=== PATIENT | female | born 1965 | race Two or more races ===

== ENCOUNTER 2019-07-08 22:15 | Emergency (ER) | payer SELFPAY ==
[~2019-07-08] VITALS: Ht 170.2 cm; Wt 99.8 kg
[~2019-07-08 22:15] MED LIST: UNOBMED
[2019-07-08] MEDS ORDERED: LORazepam Inj 2mg/ml 1ml IM ONE (22:30)
--- NOTE | 2019-07-08 22:30 | Emergency Room Report ---
History of Present Illness General Chief Complaint: Generalized Weakness Source: Patient Present Illness HPI Before work, she was almost in an accident. This upset her. She was at work and started feeling overwhelmed. She started getting short of breath and then she started having tingling on her hand and feet and mouth. She felt weak at that time short of breath and felt that she could not stand. She had one episode like this before. She denies any chest pain at this time. The weakness is generalized and not involving one side or the other. She is having difficulty ambulating. She denies any extremity pain. She denies fever but felt chilled during the episode. Patient has a history of hypertension and states that she took her blood pressure medicine today. She is only taking hydrochlorothiazide. She initially reports that she had a stroke in the past. 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 No sore throat, chest pain, nausea, vomiting, diarrhea, dysuria, abdominal pain , joint pain, rashes, depression, visual changes, headache. Allergies: Coded Allergies: No Known Allergies (Unverified , 03/17/17) Patient History Past Medical History: see triage record Social History: Denies: smoking, alcohol use, drug use Social History Narrative Works in a [employer] Last Menstrual Period: n/a Reviewed Nursing Documentation: PMH: Agreed; PSxH: Agreed Nursing Documentation-PMH Past Medical History: No History, Except For Hx Cardiac Problems: No Hx Hypertension: Yes Hx Cancer: No Hx Gastrointestinal Problems: Yes Hx Neurological Problems: Yes Hx Cerebrovascular Accident: Yes - 3 CVAs Review of Systems All Other Systems: negative except mentioned in HPI Physical Exam Vital Signs Date Time Temp Pulse Resp B/P (MAP) Pulse Ox O2 Delivery O2 Flow Rate FiO2 07/08/19 22:22 97.9 71 18 217/136 (163) 100 Sp02 EP Interpretation: reviewed, normal General Appearance: no apparent distress, GCS 15, non-toxic, mild distress, obese Head: normocephalic, atraumatic Eyes: bilateral eye normal inspection, bilateral eye PERRL, bilateral eye EOMI ENT: moist mucus membranes Neck: full range of motion, supple Respiratory: chest non-tender, lungs clear, normal breath sounds Cardiovascular #1: regular rate, rhythm, no edema Cardiovascular #2: 2+ radial (R) Gastrointestinal: normal inspection, normal bowel sounds, non tender, no mass, non-distended, overweight Genitourinary: no CVA tenderness Musculoskeletal: back normal, normal range of motion, no calf tenderness Neurologic: alert, oriented x3, car usher III-XII nml as tested, motor strength/tone normal, DTRs symmetric, sensory intact, cerebellar normal, speech normal, other - Family assisting ambulation Psychiatric: anxious Skin: no rash Medical Decision Making Diagnostic Impression: Primary Impression: Acute hyperventilation Additional Impression: Labile hypertension ER Course Patient presents with dyspnea abnormality tingling and hypertension. Differential includes acute myocardial infarction, hyperventilation syndrome, electrolyte imbalance, hypertensive urgency, malignant hypertension amongst others. There is no evidence of stroke at this time. The patient will be evaluated with EKG, chest x-ray and labs. The patient will be treated with Ativan. She is placed on a radiation monitor. Her blood pressure will be monitored. EKG without injury. Chest x-ray clear. Labs with normal CBC. Carbon dioxide minimally decreased without anion gap. Rest of labs including troponin are negative. Patient improved with observation. Ambulatory on her own. Blood pressure is improved without treatment. Discussed findings with patient and family and also most likely etiology. Advised to follow-up with her primary physician. Patient improved with treatment and stable for outpatient observation and treatment. Laboratory Tests Test 07/08/19 22:35 White Blood Count 9.7 K/UL (4.8-10.8) Red Blood Count 4.49 M/UL (4.20-5.40) Hemoglobin 14.0 G/DL (12.0-16.0) Hematocrit 39.5 % (37.0-47.0) Mean Corpuscular Volume 88 FL (80-99) Mean Corpuscular Hemoglobin 31.3 PG (27.0-31.0) H Mean Corpuscular Hemoglobin Concent 35.5 G/DL (32.0-36.0) Red Cell Distribution Width 11.3 % (11.6-14.8) L Platelet Count 247 K/UL (150-450) Mean Platelet Volume 7.6 FL (6.5-10.1) Neutrophils (%) (Auto) 51.6 % (45.0-75.0) Lymphocytes (%) (Auto) 37.6 % (20.0-45.0) Monocytes (%) (Auto) 7.2 % (1.0-10.0) Eosinophils (%) (Auto) 2.4 % (0.0-3.0) Basophils (%) (Auto) 1.1 % (0.0-2.0) Prothrombin Time 9.4 SEC (9.30-11.50) Prothrombin Time INR 0.9 (0.9-1.1) PTT 25 SEC (23-33) Sodium Level 147 MMOL/L (136-145) H Potassium Level 3.6 MMOL/L (3.5-5.1) Chloride Level 110 MMOL/L (98-107) H Carbon Dioxide Level 25 MMOL/L (21-32) Anion Gap 12 mmol/L (5-15) Blood Urea Nitrogen 14 mg/dL (7-18) Creatinine 0.9 MG/DL (0.55-1.30) Estimate Glomerular Filtration Rate > 60 mL/min (>60) Glucose Level 130 MG/DL (74-106) H Calcium Level 9.7 MG/DL (8.5-10.1) Total Bilirubin 0.3 MG/DL (0.2-1.0) Aspartate Amino Transferase (AST) 29 U/L (15-37) Alanine Aminotransferase (ALT) 53 U/L (12-78) Alkaline Phosphatase 143 U/L (46-116) H Total Creatine Kinase 163 U/L (26-308) Troponin I 0.000 ng/mL (0.000-0.056) Pro-B-Type Natriuretic Peptide 163 pg/mL (0-125) H Total Protein 7.8 G/DL (6.4-8.2) Albumin 3.9 G/DL (3.4-5.0) Globulin 3.9 g/dL Albumin/Globulin Ratio 1.0 (1.0-2.7) EKG Diagnostic Results Rate: normal Rhythm: NSR ST Segments: no acute changes Rhythm Strip Diag. Results EP Interpretation: yes Rhythm: NSR, no PVC's, no ectopy Chest X-Ray Diagnostic Results Chest X-Ray Diagnostic Results : Chest X-Ray Ordered: Yes # of Views/Limited/Complete: 1 View EP Interpretation: Yes Interpretation: no consolidation, no effusion, no pneumothorax Impression: No acute disease Electronically Signed by: Electronically signed by Carmelo Rivas MD Last Vital Signs Date Time Temp Pulse Resp B/P (MAP) Pulse Ox O2 Delivery O2 Flow Rate FiO2 07/09/19 02:08 98.6 70 18 144/84 99 Room Air Status: improved Disposition: HOME, SELF-CARE Condition: Improved Scripts Hydroxyzine Pamoate (VISTARIL) 25 Mg Capsule 25 MG PO Q8HR PRN for For Anxiety, #10 CAP Prov: Carmelo Rivas MD 07/09/19 Referrals: NOT CHOSEN IPA/,REFERRING (PCP) Carmelo Rivas MD Jul 08, 2019 22:30
[2019-07-08 22:42] VITALS: BP 217/136
--- NOTE | 2019-07-08 22:46 | NUR ---
ED Nurse Note: Patient was wheeled into ER due to anxiety attack, weakness. Stated that can not feel both arms, and lower jaw. Patient presented crying, resstless, AAO x4, BP 217/117, ER MD randhawa, other VSS at this time.
[2019-07-08 23:06] LABS: BASOPHILS % (AUTO) 1.1 % (0.0-2.0); EOSINOPHILS % (AUTO) 2.4 % (0.0-3.0); HEMATOCRIT 39.5 % (37.0-47.0); LYMPHOCYTES % (AUTO) 37.6 % (20.0-45.0); MEAN CORPUSCULAR VOLUME 88 FL (80-99); MONOCYTES % (AUTO) 7.2 % (1.0-10.0); NEUTROPHILS % (AUTO) 51.6 % (45.0-75.0); PLATELET COUNT 247 K/UL (150-450); RED BLOOD COUNT 4.49 M/UL (4.20-5.40); RED CELL DISTRIBUTION WIDTH 11.3 % (11.6-14.8); WHITE BLOOD COUNT 9.7 K/UL (4.8-10.8)
[2019-07-08 23:19] LABS: INR 0.9 (0.9-1.1)
--- NOTE | 2019-07-08 23:24 | Diagnostic Imaging Report ---
EXAM: XR Chest, 1 View CLINICAL HISTORY: DYSPNEA TECHNIQUE: Frontal view of the chest. COMPARISON: 03/06/17 IMPRESSION: Unchanged heart size. No consolidation or pleural effusion.
[2019-07-08 23:25] LABS: ANION GAP 12 mmol/L (5-15); BLOOD UREA NITROGEN 14 mg/dL (7-18); CALCIUM 9.7 MG/DL (8.5-10.1); CARBON DIOXIDE 25 MMOL/L (21-32); CHLORIDE 110 MMOL/L (98-107); CREATININE 0.9 MG/DL (0.55-1.30); POTASSIUM 3.6 MMOL/L (3.5-5.1); SODIUM 147 MMOL/L (136-145)
[2019-07-08 23:38] LABS: ALANINE AMINOTRANSFERASE 53 U/L (12-78); ALBUMIN 3.9 G/DL (3.4-5.0); ALKALINE PHOSPHATASE 143 U/L (46-116); ASPARTATE AMINO TRANSFERASE 29 U/L (15-37); BILIRUBIN,TOTAL 0.3 MG/DL (0.2-1.0); CREATINE KINASE 163 U/L (26-308)
[2019-07-09] MEDS ORDERED: Nitroglycerin 2% oint pkt TOPIC ONE
[2019-07-09] MEDS ORDERED: Metoprolol 5mg/5ml Inj IVP SCH
[2019-07-09] MEDS ORDERED: VISTARIL25 M1 PO (02:05)
--- NOTE | 2019-07-09 02:10 | NUR ---
ER DISCHARGE NOTE: Patient is cleared to be discharged per ERMD, pt is aox4, on room air, with stable vital signs. pt was given dc and prescription instructions, pt was able to verbalize understanding, pt id band and iv site removed without complications. pt is able to ambulate with steady gait. pt took all belongings.
== END 2019-07-09 02:16 | disposition home or self-care (01) ==
LOC: EDUNIT# 22:28 → EMR 22:28 → CANBEDREQ 07-09 00:29 → EMR 07-09 02:16
DX: R06.4 Hyperventilation (principal); I10 Essential (primary) hypertension; G51.0 Bell's palsy; Z86.73 Personal history of transient ischemic attack (TIA), and cerebral infarction without residual deficits
CPT/HCPCS: 36415; 71045; 80053; 82550; 83880; 84484; 85025; 85610; 85730; 96372; 96374; 99284

== ENCOUNTER 2020-04-04 21:34 | Emergency (ER) | payer SELFPAY ==
[~2020-04-04] VITALS: Ht 170.2 cm; Wt 108.9 kg
[~2020-04-04 21:34] MED LIST changes: +ACYCLOVIR400 MG ORAL; +ASPIRIN81 M3 PO; +AUGMENTIN 875-1 EAC1 ORAL; +HYDROCHLOROTHIA25 MG ORAL; +LIPITOR40 MG ORAL; +METFORMIN HCL500 M1 ORAL; +NORVASC5 MG ORAL; +PREDNISONE10 M2 PO; +VISTARIL25 M1 PO
[2020-04-04 21:35] VITALS: BP 165/113
--- NOTE | 2020-04-04 21:59 | Emergency Room Report ---
History of Present Illness General Chief Complaint: Dizziness Source: EMS (Baljeet Becker M.D.) Present Illness HPI 55-year-old female presented for palpitations and dizziness. She has a history of hypertension. She states she has been compliant with her medications. She denied any nausea or vomiting. She denies any chest pain or shortness of breath. Symptoms started earlier today. She feels her blood pressures been running high. She states she has been compliant with her medications. (Baljeet Bekcer M.D.) Allergies: Coded Allergies: No Known Allergies (Unverified , 03/17/17) COVID-19 Screening Contact w/high risk pt: No Recent Travel to affected area: No Experienced COVID-19 symptoms?: No COVID-19 Testing performed FURNITURE REPAIR TECHNICIAN: No (Baljeet Becker M.D.) Patient History Last Menstrual Period: unk Reviewed Nursing Documentation: PMH: Agreed; PSxH: Agreed (Baljeet Becker M.D.) Nursing Documentation-PMH Hx Cardiac Problems: No Hx Hypertension: Yes Hx Cancer: No Hx Gastrointestinal Problems: Yes Hx Neurological Problems: Yes Hx Cerebrovascular Accident: Yes (Baljeet Becker M.D.) Review of Systems All Other Systems: negative except mentioned in HPI (Baljeet Becker M.D.) Physical Exam Vital Signs Date Time Temp Pulse Resp B/P (MAP) Pulse Ox O2 Delivery O2 Flow Rate FiO2 04/04/20 21:31 81 18 185/127 (146) 99 Room Air 04/04/20 21:35 98.3 Sp02 EP Interpretation: reviewed, normal General Appearance: well appearing, no apparent distress Head: normocephalic, atraumatic Eyes: bilateral eye PERRL, bilateral eye EOMI ENT: hearing grossly normal, moist mucus membranes Neck: full range of motion, supple Respiratory: lungs clear, normal breath sounds, no rhonchi, no respiratory distress, no retraction, no wheezing Cardiovascular #1: normal peripheral pulses, regular rate, rhythm, no murmur Gastrointestinal: non tender, soft, non-distended, no guarding Neurologic: alert, motor strength/tone normal, energy consultant III-XII nml as tested, oriented x3, cerebellar normal, no focal defects Skin: normal color, warm/dry (Baljeet Becker M.D.) Medical Decision Making Diagnostic Impression: Primary Impression: Uncontrolled hypertension ER Course MDM: Dizziness and palpitations. Patient has a history of hypertension. She states she has been compliant with her medications. Patient's blood pressure on arrival was elevated but she denied chest pain. EKG had no ischemic changes. Differential included but not limited to uncontrolled hypertension, anxiety, less likely ACS or stroke. Clinical course-IV inserted cardiac monitoring pulse oximetry. Basic laboratory studies were sent. Patient will be observed in the ER. Blood pressure did improve without medication. Plan-patient signed out to oncoming physician to follow-up on laboratory studies reassess patient and final disposition. (Baljeet Becker M.D.) ER Course Assumed care of the patient from previous provider. Briefly, this is a 55-year-old female with history of hypertension presenting for dizziness/lightheadedness that began earlier today. She feels her pressures have been running high. She came with originally elevated heart blood pressures with systolic pressures in the 180s however without medications they have improved to the 140s-160s. She is currently denying dizziness, headache, palpitations or other symptoms. Labs have returned within normal limits including cardiac enzymes. Chest x-ray unremarkable. Patient will be discharged home. Prior to discharge she will be given her nighttime dose of hydrochlorothiazide, 25 mg. She will follow-up with her PMD regarding her elevated blood pressures and possible need to change her medication regimen. Discussed reasons to return to the emergency department. She understands and agrees with this treatment plan. Laboratory Tests Test 04/04/20 21:30 White Blood Count 9.7 K/UL (4.8-10.8) Red Blood Count 4.65 M/UL (4.20-5.40) Hemoglobin 14.3 G/DL (12.0-16.0) Hematocrit 44.4 % (37.0-47.0) Mean Corpuscular Volume 95 FL (80-99) Mean Corpuscular Hemoglobin 30.7 PG (27.0-31.0) Mean Corpuscular Hemoglobin Concent 32.2 G/DL (32.0-36.0) Red Cell Distribution Width 12.7 % (11.6-14.8) Platelet Count 238 K/UL (150-450) Mean Platelet Volume 9.9 FL (6.5-10.1) Neutrophils (%) (Auto) 54.3 % (45.0-75.0) Lymphocytes (%) (Auto) 37.5 % (20.0-45.0) Monocytes (%) (Auto) 4.8 % (1.0-10.0) Eosinophils (%) (Auto) 2.1 % (0.0-3.0) Basophils (%) (Auto) 1.4 % (0.0-2.0) Sodium Level 143 MMOL/L (136-145) Potassium Level 3.4 MMOL/L (3.5-5.1) L Chloride Level 105 MMOL/L (98-107) Carbon Dioxide Level 26 MMOL/L (21-32) Anion Gap 12 mmol/L (5-15) Blood Urea Nitrogen 13 mg/dL (7-18) Creatinine 0.7 MG/DL (0.55-1.30) Estimated Glomerular Filtration Rate > 60 mL/min (>60) Glucose Level 114 MG/DL (74-106) H Calcium Level 9.3 MG/DL (8.5-10.1) Total Bilirubin 0.4 MG/DL (0.2-1.0) Aspartate Amino Transferase (AST) 32 U/L (15-37) Alanine Aminotransferase (ALT) 64 U/L (12-78) Alkaline Phosphatase 134 U/L (46-116) H Troponin I 0.000 ng/mL (0.000-0.056) Pro-B-Type Natriuretic Peptide 260 pg/mL (0-125) H Total Protein 7.7 G/DL (6.4-8.2) Albumin 3.9 G/DL (3.4-5.0) Globulin 3.8 g/dL Albumin/Globulin Ratio 1.0 (1.0-2.7) (Sherman Hampton MD) EKG Diagnostic Results Rate: normal Rhythm: NSR, other - PACs ST Segments: no acute changes (Baljeet Becker M.D.) Rhythm Strip Diag. Results EP Interpretation: yes Rate: 68 Rhythm: NSR, no PVC's (Baljeet Becker M.D.) Chest X-Ray Diagnostic Results Chest X-Ray Diagnostic Results : Chest X-Ray Ordered: Yes # of Views/Limited/Complete: 1 View Indication: Chest Pain Interpretation: no consolidation, no effusion, no pneumothorax Impression: No acute disease Electronically Signed by: Electronically signed by Dr. Sherman Hampton (Sherman Hampton MD) Last Vital Signs Date Time Temp Pulse Resp B/P (MAP) Pulse Ox O2 Delivery O2 Flow Rate FiO2 04/04/20 21:35 98.3 78 18 165/113 99 Room Air (Baljeet Becker M.D.) Disposition: HOME, SELF-CARE Condition: Stable Baljeet Becker M.D. Apr 04, 2020 21:59 Sherman Hampton MD Apr 04, 2020 22:56
[2020-04-04 22:08] LABS: BASOPHILS % (AUTO) 1.4 % (0.0-2.0); EOSINOPHILS % (AUTO) 2.1 % (0.0-3.0); HEMATOCRIT 44.4 % (37.0-47.0); HEMOGLOBIN 14.3 G/DL (12.0-16.0); LYMPHOCYTES % (AUTO) 37.5 % (20.0-45.0); MEAN CORPUSCULAR VOLUME 95 FL (80-99); MONOCYTES % (AUTO) 4.8 % (1.0-10.0); NEUTROPHILS % (AUTO) 54.3 % (45.0-75.0); PLATELET COUNT 238 K/UL (150-450); RED BLOOD COUNT 4.65 M/UL (4.20-5.40); RED CELL DISTRIBUTION WIDTH 12.7 % (11.6-14.8); WHITE BLOOD COUNT 9.7 K/UL (4.8-10.8)
[2020-04-04 22:22] LABS: ANION GAP 12 mmol/L (5-15); BLOOD UREA NITROGEN 13 mg/dL (7-18); CALCIUM 9.3 MG/DL (8.5-10.1); CARBON DIOXIDE 26 MMOL/L (21-32); CHLORIDE 105 MMOL/L (98-107); CREATININE 0.7 MG/DL (0.55-1.30); POTASSIUM 3.4 MMOL/L (3.5-5.1); SODIUM 143 MMOL/L (136-145)
[2020-04-04 22:30] VITALS: BP 153/93
[2020-04-04 22:33] LABS: ALANINE AMINOTRANSFERASE 64 U/L (12-78); ALBUMIN 3.9 G/DL (3.4-5.0); ALKALINE PHOSPHATASE 134 U/L (46-116); ASPARTATE AMINO TRANSFERASE 32 U/L (15-37); BILIRUBIN,TOTAL 0.4 MG/DL (0.2-1.0)
[2020-04-04] MEDS ORDERED: hydroCHLOROthiazide 25mg cap ORAL ONE (23:00)
[2020-04-04] MEDS ORDERED: hydroCHLOROthiazide 25mg cap ONE (23:02)
[2020-04-04 23:11] VITALS: BP 144/77
--- NOTE | 2020-04-05 09:43 | Diagnostic Imaging Report ---
Indication: Reason For Exam: PAIN Technique: One view of the chest Comparison: none Findings: The heart size is upper limits of normal. Lungs and pleural spaces are clear. Impression: No acute process
== END 2020-04-04 23:10 | disposition home or self-care (01) ==
LOC: EDBD 21:34 → EMR 21:50
DX: I10 Essential (primary) hypertension (principal); Z86.73 Personal history of transient ischemic attack (TIA), and cerebral infarction without residual deficits
CPT/HCPCS: 36415; 71045; 80053; 83880; 84484; 85025; 93005; 99283